=== PATIENT | female | born 1950 | race Caucasian/White ===

== ENCOUNTER → 2017-02-19 | Outpatient (CLI) | payer MEDICARE ==
[~2017-02-19] MED LIST: ALENDRONATE SOD70 M1 PO; ASCORBIC ACID500 M2 PO; ATORVASTATIN 4040 MG PO; D-20001 TAB PO; MEDROL 4MG. DOSE4 MG PO; MIRALAX(PO17 GM/1 PA PO; NATURE'S BLEND400 IU PO; POTASSIUM CHLO10 MEQ PO; PRILOSEC OTC20 MG PO; PROAIR RES117 MCG/Ac IH; SYMBICORT 10.10.2 M1 IH; VICODIN 5/500 T1 TAB PO
[2017-02-19 08:50] LABS: BUN 8 mg/dL (7-18)
[2017-02-19 08:55] LABS: GFR (ESTIMATED) 83 ML/MIN (59-)
--- NOTE | 2017-02-20 08:22 | RADIOLOGY REPORT PS360 ---
CT ABD PELVIS W/WO CONTRAST INDICATION: HEMATURIA ORDERING PHYSICIAN: Robert Ventura MD PATIENT AGE: 66 years COMPARISON: 11/06/2013 TECHNIQUE: Axial images are obtained without and with contrast. Immediate and delayed post enhanced images are obtained. Sagittal and coronal reformatted images are reviewed as well. FINDINGS: Lung bases are clear. Subcentimeter isodensity involves the medial segment of the left hepatic lobe unchanged and may be due to small cyst. Liver is otherwise unremarkable. Spleen has an unremarkable appearance. There is a subtle isodensity in the mid aspect of the body the pancreas is 5 mm. This male and be related to partial volume averaging artifact as seen only on the immediate post enhanced images but not on the delayed images. [address] follow-up recommended with pancreatic protocol to confirm short-term stability. The gallbladder and right adrenal gland are unremarkable. Left adrenal nodule is once again noted measuring 2.5 x 2.3 cm not significantly changed. The density of the nodule measures as low as negative 13 Hounsfield units on the unenhanced exam consistent with an adenoma. No renal calculi evident. No evidence of renal mass. There is mild prominence of the right pelvis and proximal and mid ureter. This is similar when compared to 11/06/2013. A ureteral stone is not identified. The left renal collecting system has an unremarkable appearance. The urinary bladder has an unremarkable appearance. No intestinal obstruction or free air. No evidence of appendicitis or diverticulitis. No pelvic mass or abnormal fluid collection. There are a few diverticula noted of the sigmoid colon. No acute bony anomalies. Atheromatous changes involve the abdominal aorta with the minimal fusiform dilatation of the mid abdominal aorta at 2 cm. IMPRESSION: 1. 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 No ureteral calculus or other obstructing ureteral lesion identified. 2. Left adrenal nodule consistent with adenoma. 3. Subtle isodensity at the body the pancreas at 5 mm possibly due to artifact and partial volume averaging of the adjacent fat. Suggest 3 month follow-up with pancreatic protocol.
== END ==
LOC: RAD 08:35
PROVIDERS: Urology
DX: R31.9 Hematuria, unspecified (principal)
CPT/HCPCS: Q9967